=== PATIENT | female | born 1990 | race Caucasian/White ===

== ENCOUNTER 2020-01-22 16:20 | Observation (INO) | payer OTHER, SELFPAY ==
[2020-01-22] MEDS: PROMETHAZINE HCL 25 MG/ML AMPUL 12.5 MG IV PUSH (17:31)
[2020-01-22] MEDS: LACTATED RINGERS 1,000 ML 999 ML IV CONT (17:31)
[2020-01-22 17:35] LABS: Hematocrit 34.7 % (37.0-47.0); Hemoglobin 12.1 g/dL (12.0-15.0); Mean Corpuscular HGB Conc 34.9 g/dl (32-36); Mean Corpuscular Hemoglobin 29.2 pg (26-34); Mean Corpuscular Volume 83.8 fl (80-100); Mean Platelet Volume 10.2 fl (7.4-10.4); Platelet Count Result 246 k/mm3 (150-375); Red Blood Count 4.14 M/mm3 (4.2-5.4); Red Cell Distribution Width 12.4 % (11.5-14.5); White Blood Count 12.2 K/mm3 (4.5-10.0)
[2020-01-22 17:37] VITALS: BMI 18.3
--- NOTE | 2020-01-22 17:37 | OBADM ---
This patient, Ana Damico, admitted to the OB room OB Post 116 for observation. Patient/family oriented to hospital policies and general routines including ID bracelet, bed and alarms, visiting hours, pain management, procedures, bathroom and other care routines, personal items, smoking policy, room service/diet, and visiting hours. Patient/Family are encouraged to report perceived risks to care and to ask questions if they do not understand what they are told or what they should do.
[2020-01-22 17:38] LABS: Add Urine Microscopic? NO; Appearance Urine Clear (Clear); Bilirubin Urine Negative (Negative); Blood Urine Negative (Negative); Color Urine Straw (Yellow); Glucose Urine UA Negative (Negative); Ketones Urine Negative (Negative); Leukocyte Esterase Ur Negative LEU/UL (NEGATIVE); Nitrate Urine Negative (Negative); Protein Urine Negative (Negative); Specific Grav Ur 1.008 (1.001-1.035); Urobilinogen Urine Negative mg/dL (<2.0)
[2020-01-22 17:48] LABS: Alanine Aminotransferase 11 U/L (4-35); Albumin Level 4.3 g/dL (3.5-5.1); Alkaline Phosphatase 48 U/L (38-126); Anion Gap 10 mmol/L (8-16); Aspartate Amino Transferase 20 U/L (14-36); Bilirubin,Total 0.3 mg/dL (0.2-1.3); Blood Urea Nitrogen 10 mg/dL (7-17); Calcium 9.2 mg/dL (8.4-10.2); Carbon Dioxide 27 mmol/L (22-30); Chloride 100 mmol/L (98-107); Estimated CRCL calculation 99 ml/min; Estimated Glomerular Filt Rate > 60; Glucose 85 mg/dL (65-105); Sodium 137 mmol/L (137-145)
[2020-01-22 18:36] VITALS: BP 100/53; PULSE 85
[2020-01-22] MEDS: LACTATED RINGERS 1,000 ML 100 ML IV CONT (18:41)
[2020-01-22 18:45] VITALS: TEMP 37.1
--- NOTE | 2020-02-12 16:28 | PM.OBTRLD ---
OB - Triage/Final Diagnosis Evaluation Laboratory results: Laboratory Tests 01/22/20 01/22/20 01/22/20 17:24 17:24 17:24 WBC 12.2 H RBC 4.14 L Hgb 12.1 Hct 34.7 L MCV 83.8 MCH 29.2 MCHC 34.9 RDW 12.4 Plt Count 246 MPV 10.2 Sodium 137 Potassium 4.0 Chloride 100 Carbon Dioxide 27 Anion Gap 10 BUN 10 Creatinine 0.60 L Estim Creat Clear Calc 99 Estimated GFR > 60 Glucose 85 Calcium 9.2 Total Bilirubin 0.3 AST 20 ALT 11 Alkaline Phosphatase 48 Total Protein 7.0 Albumin 4.3 Urine Color Straw Urine Appearance Clear Urine pH 7.0 Ur Specific [place] 1.008 Urine Protein Negative Urine Glucose (UA) Negative Urine Ketones Negative Ur Blood (Man) Negative Urine Nitrate Negative Urine Bilirubin Negative Urine Urobilinogen Negative Ur Leukocyte Esterase Negative Final Diagnosis (1) Nausea and vomiting during : Code(s): O21.9 - Vomiting of , unspecified Status: Acute
== END 2020-01-22 19:03 | disposition home or self-care (01) ==
PROVIDERS: Admitting Provider Student in an Organized Health Care Education/Training Program; Visit Provider Student in an Organized Health Care Education/Training Program
DX: O21.0 Mild hyperemesis gravidarum (principal); Z3A.08 8 weeks gestation of pregnancy
CPT/HCPCS: 36415; 80053; 81003; 85027; 96361; 96374; G0378; G0379; J2550; J7120

== ENCOUNTER 2020-08-13 23:00 | Inpatient (IN) | payer OTHER, SELFPAY ==
[2020-08-13 23:45] VITALS: BMI 22.8
[2020-08-14] VITALS (97 sets, daily range): BP systolic 97–135; BP diastolic 47–87; PULSE 87–126; RESP 16; TEMP 36.7–38.1; O2SAT 93–100
[2020-08-14] MEDS: LACTATED RINGERS 1,000 ML 125 ML IV CONT ×3 (00:15→06:37)
[2020-08-14 00:25] LABS: Basophils Absolute Auto 0.1 K/mm3 (0.0-0.1); Basophils Percent Auto 0.3 % (0.2-1.2); Eosinophils Absolute Auto 0.1 K/mm3 (0-0.3); Eosinophils Percent Auto 0.7 % (0-4.4); Hematocrit 32.8 % (37.0-47.0); Hemoglobin 11.1 g/dL (12.0-15.0); Immature Granulocyte Absolute 0.12 K/mm3 (0.00-0.031); Immature Granulocyte Percent A 0.6 % (0-0.5); Lymphocytes Absolute Auto 2.32 K/mm3 (0.9-3.2); Lymphocytes Percent Auto 12.1 % (18.3-44.2); Mean Corpuscular HGB Conc 33.8 g/dl (32-36); Mean Corpuscular Hemoglobin 30.2 pg (26-34); Mean Corpuscular Volume 89.4 fl (80-100); Mean Platelet Volume 10.8 fl (7.4-10.4); Monocytes Absolute Auto 1.3 K/mm3 (0.1-0.6); Monocytes Percent Auto 6.8 % (2.6-8.5); Neutrophils Absolute Auto 15.2 K/mm3 (1.3-6.7); Neutrophils Percent Auto 79.5 % (45.5-73.1); Platelet Count Result 177 k/mm3 (150-375); Red Blood Count 3.67 M/mm3 (4.2-5.4); White Blood Count 19.1 K/mm3 (4.5-10.0)
--- NOTE | 2020-08-14 01:05 | WPDANESEPPF ---
Anes - Initial Pre Proc Eval Procedure: labor epidural Date/Time: 08/14/20 00:32 Surgeon: Estella Gold MD Pre Op Diagnosis: labor pain Pre Op Diagnosis: Labor Patient Data Age: 30 Gender: F Height: Weight: Last Vital Signs Pulse 99 08/14/20 01:03 BP 118/73 08/14/20 01:03 Pulse Ox 93 08/14/20 01:03 Allergies Allergy/AdvReac Type Severity Reaction Status Date / Time No Known Allergies Allergy Verified 08/13/20 13:03 Home Medications Medication Instructions Recorded Confirmed Type prenat.vits,juan ramon,[id number] 1 tablet PO DAILY 01/01/20 08/09/20 History Laboratory Tests 08/14/20 08/14/20 00:18 00:18 WBC 19.1 K/mm3 H K/mm3 (4.5-10.0) RBC 3.67 M/mm3 L M/mm3 (4.2-5.4) Hgb 11.1 g/dL L g/dL (12.0-15.0) Hct 32.8 % L % (37.0-47.0) MCV 89.4 fl fl (80-100) MCH 30.2 pg pg (26-34) MCHC 33.8 g/dl g/dl (32-36) RDW 13.0 % % (11.5-14.5) Plt Count 177 k/mm3 k/mm3 (150-375) MPV 10.8 fl H fl (7.4-10.4) Immature Gran % (Auto) 0.6 % H % (0-0.5) Neut % (Auto) 79.5 % H % (45.5-73.1) Lymph % (Auto) 12.1 % L % (18.3-44.2) [place] % (Auto) 6.8 % % (2.6-8.5) Eos % (Auto) 0.7 % % (0-4.4) Baso % (Auto) 0.3 % % (0.2-1.2) Lymph # (Auto) 2.32 K/mm3 K/mm3 (0.9-3.2) [place] # (Auto) 1.3 K/mm3 H K/mm3 (0.1-0.6) Eos # (Auto) 0.1 K/mm3 K/mm3 (0-0.3) Baso # (Auto) 0.1 K/mm3 K/mm3 (0.0-0.1) Abs Immat Gran (auto) 0.12 K/mm3 H K/mm3 (0.00-0.031) Absolute Neuts (auto) 15.2 K/mm3 H K/mm3 (1.3-6.7) Absolute Nucleated RBC 0.0 K/mm3 K/mm3 (0.0-0.012) Nucleated RBC % 0.0 % % (0.0-0.2) RPR Pending Patient hx anesthesia problems: none Family hx anesthesia problems: none PMFSH Past Medical History Medical History Vaginal delivery x1 Family History Family History Father Family history of hypercholesterolemia Grandparent Family history of lung cancer Social History Social History Smoking status: Never smoker Alcohol intake: never Substance use: never Gender identity (if verbalized by the patient): Female Spiritual care concerns: No Anes - Eval Final PreProcedure Day of Procedure 08/14/20 01:05 Patient weight: normal Heart: regular rate and rhythm Lungs: clear to auscultation and normal air movement Airway: Mallampati scale Neurological: alert and oriented ASA classification: II Anesthetic plan: proceed Anesthesia type and monitoring: regional epidural and standard monitoring Informed Consent: The patient's anesthetic plan and its attendant risks and benefits were discussed with the patient/family/POA. Questions were solicited and answers provided to the satisfaction of the patient/family/POA.
--- NOTE | 2020-08-14 01:33 | LDADM ---
This patient, Ana Damico, was admitted to Labor/Delivery/Recovery 106 on 08/13/20 at 23:00. Plans for labor, pain management and were discussed with patient. Patient/family oriented to hospital policies and general routines including ID bracelet, bed and alarms, visiting hours, pain management, procedures, bathroom and other care routines, personal items, smoking policy, room service/diet and guest tray routines, security routines, and visiting hours. Patient/Family are encouraged to report perceived risks to care and to ask questions if they do not understand what they are told or what they should do. See OBIX for further documentation.
[2020-08-14] MEDS: ACETAMINOPHEN 325 MG TABLET 650 MG PO (05:15)
[2020-08-14] MEDS: AMPICILLIN 2 GM/NS 100 ML 2 GM/100 ML BAG IVPB (05:16)
[2020-08-14 07:27] LABS: Rapid Plasma Reagin Non-Reactive (NonReactive)
--- NOTE | 2020-08-14 08:29 | PM.IMHP ---
H&P: HPI History of Present Illness Date/Time: 08/14/20 08:29 Patient is a 30-year-old currently 37 weeks and 6 days gestation who presented to L&D in labor. Last menstrual period 11/14/2019. Patient is dated by an ultrasound on 01/08/2020 at 6 weeks gestation. Patient presents to labor and delivery with complaints of contractions. Patient reports onset of contractions a few hours prior to presentation and reports progressively more intense and more frequent contractions. Denies any vaginal bleeding or leakage of fluid. Reports good movement. Upon presentation to labor and delivery, patient was noted to be 5 cm dilated and decision was made to admit patient to labor. Chief Complaint: labor Review of Systems Review of Systems: All systems reviewed & are unremarkable except as noted in HPI and below Constitutional: Constitutional: Reports as per HPI, Reports no additional constitutional complaints, Denies chills, Denies fever(s), Denies headache(s) and Denies night sweats Eyes: Eyes: Reports as per HPI and Reports no additional eye complaints ENT: Reports system reviewed and no additional complaints, except as documented, Reports as per HPI, Reports Normal hearing present and Denies headache(s) Cardiovascular: Cardiovascular: Reports as per HPI, Reports no additional cardiovascular complaints, Denies chest pain and Denies dyspnea Respiratory: Respiratory: Reports as per HPI, Reports no additional respiratory complaints, Denies cough and Denies dyspnea Gastrointestinal: Gastrointestinal: Reports as per HPI, Reports no additional gastrointestinal complaints, Denies abdominal pain, Denies change in bowel habits, Denies change in stool character, Denies nausea and Denies vomiting Genitourinary: Genitourinary: Reports no additional female genitourinary complaints, Reports as per HPI, Denies abnormal vaginal bleeding, Denies genital lesions, Denies hot flashes, Denies dyspareunia, Denies pelvic pain, Denies sexual dysfunction, Denies urinary incontinence, Denies vaginal discharge, Denies vaginal dryness and Denies vaginal odor Musculoskeletal: Musculoskeletal: Reports no additional musculoskeletal complaints and Reports as per HPI Integumentary/Breasts: Skin/Breast: Reports system reviewed and no additional complaints, except as docu, Reports as per HPI, Denies breast pain and Denies nipple discharge Neurologic: Reports system reviewed and no additional complaints, except as documented, Reports as per HPI, Reports Normal hearing present and Denies headache(s) Psychiatric: Psychiatric: Reports no additional psychiatric complaints, Reports as per HPI, Denies anxiety and Denies depression Endocrine: Endocrine: Reports no additional endocrine complaints and Reports as per HPI Hematologic/Lymphatic: Hematologic/Lymphatic: Reports no additional hematologic/lymphatic complaints and Reports as per HPI Allergic/Immunologic: Allergic/Immunologic: Reports no additional allergic/immunologic complaints and Reports as per HPI PMFSH Past Medical History Medical History Vaginal delivery x1 Family History Family History Father Family history of hypercholesterolemia Grandparent Family history of lung cancer Social History Social History Smoking status: Never smoker Alcohol intake: never Substance use: never Gender identity (if verbalized by the patient): Female Spiritual care concerns: No Meds Home Medications and Allergies Home Medications Medication Instructions Recorded Confirmed Type prenat.vits,juan ramon,[id number] 1 tablet PO DAILY 01/01/20 08/09/20 History Allergies Allergy/AdvReac Type Severity Reaction Status Date / Time No Known Allergies Allergy Verified 08/13/20 13:03 Vital Signs Vital Signs - 24 hr 08/14/20 00:34 08/14/20 00:42 07/27
--- NOTE | 2020-08-14 08:38 | WPDHPUPDATE1 ---
History and Physical Update Update Date/Time: 08/14/20 08:38 History and Physical has been reviewed, including an updated exam of the patient. There are NO changes in the patient's condition. Risks, benefits, and alternatives have been discussed and questions answered. Patient agrees to proceed with procedure.
[2020-08-14] MEDS: AMPICILLIN 1 GM/NS 50 ML 1 GM/50 ML BAG IVPB (09:11)
[2020-08-14] MEDS: OXYTOCIN 30 UNITS/NS 500 ML 30 UNITS/500 ML BAG 999 UNITS IV CONT (11:09)
[2020-08-14] MEDS: OXYTOCIN 30 UNITS/NS 500 ML 30 UNITS/500 ML BAG 125 UNITS IV CONT (11:42)
--- NOTE | 2020-08-14 12:19 | PM.OBPRVD ---
OB - Delivery Note Procedure Delivery date: 08/14/20 Procedure: The patient is a 30-year-old now who presented to labor and delivery just before midnight last night at 37 weeks and 5 days gestation with complaints of contractions. Patient was noted to be 4-5 cm dilated at time of presentation with frequent contractions. Patient was admitted to Labor and delivery in labor. Patient was allowed to progress on her own and made slow progress overnight. She became uncomfortable and requested an epidural for pain management which was placed without difficulty. Patient was noted to have maternal tachycardia as well as one isolated temperature of 100.6?. Antibiotic coverage and Tylenol was ordered, however, patient was noted to be afebrile prior to administration of these medications. These medications, however, were still administered for one dose in the event of possible chorioamnionitis. Patient continued to make cervical change on her own. Artificial rupture membranes was performed at 0741. Clear amniotic fluid was noted. Patient was noted to be fully dilated at 1028. She was prepped and draped for delivery and encouraged to push. At 1104, patient delivered infant head in direct OP presentation. Infant's head was delivered atraumatically and without difficulty. Occiput restituted to maternal right side and with subsequent push, the 's neck, shoulders, and rest of body delivered without difficulty. The was crying spontaneously. The was placed on maternal abdomen where care was assumed by awaiting nursing staff. Infant's nose and mouth were suctioned with bulb suction. The voided spontaneously. Delayed cord clamping was performed for approximately 60 seconds. The cord was clamped and cut. A segment of cord was collected for cord gases. Cord blood was also collected. The placenta was delivered spontaneously and intact. Uterine fundus was noted to be firm with bimanual massage. On inspection, a 1st degree perineal laceration was noted as well as a right labial laceration. These lacerations were repaired with 3-0 Vicryl in the usual fashion. Excellent hemostasis was noted. Straight catheterization was performed with the return of approximately 20 cc of clear urine. Estimated blood loss for entire delivery was 250 cc. The was a live-born male infant, Apgars 9 and 9, weighing 7 lb 13 oz. Both mother and baby doing well at end of delivery. Intrapartal events: Febrile Delivery augmentation: rupture of membranes Delivery monitor: external FHT and external uterine Route of delivery: Laceration Description: Perineal - 1st Degree and Labial (right) Delivery repair: vicryl (3-0) Specimen: Yes (placenta and cord, cord blood, and cord gases) Quantitative Blood Loss (ml): 250 Anesthesia type: Epidural Disposition: floor Complications: No immediate complications [place] Baby Date of : 08/14/20 Time of : 11:04 Weeks of gestation at delivery: 37 (37.6) Infant gender: Male Weight (pounds): 7 Weight (ounces): 13 presentation: vertex position: Right Occiput Posterior (direct OP with restitution of head to right side) Placenta delivery description: Spontaneous cord vessel description: 3 Vessels and Delayed Cord Clamping score one minute: 9 score five minutes: 9
[2020-08-14] MEDS: BENZOCAINE 20% AER SPR (*SP) 56 GM CAN 1 SPRAY TOPICAL (13:33)
[2020-08-14] MEDS: WITCH HAZEL 40 PADS 1 PAD TOPICAL (13:34)
--- NOTE | 2020-08-14 13:45 | OBPPTRN ---
Patient transferred to post room # 291 via ( wheelchair ). Support person present. Oriented to unit, room, information board, rooming in, admission packet and security measures. Patient verbalizes understanding. PT received such instructions one to one discussion and mom baby care guide as a resource. no barriers to learning identified and both mom and spouse recipients of such instructions.
--- NOTE | 2020-08-14 14:40 | PC.NURSE ---
1445 Attempt to consult, parents are reviewing certificate information. Mother has at breast denies tenderness.
[2020-08-14] MEDS: IBUPROFEN 600 MG TABLET PO (18:01)
[2020-08-14] MEDS: LANOLIN (LANSINOH) 7.5 GM CREAM 1 APPLIC TOPICAL (18:01)
[2020-08-14] MEDS: DOCUSATE SODIUM 100 MG CAPSULE PO (18:01)
[2020-08-15 04:50] VITALS: BP 108/67; PULSE 92; RESP 16; TEMP 36.2; O2SAT 100
[2020-08-15] MEDS: IBUPROFEN 600 MG TABLET PO (04:50)
[2020-08-15 05:25] LABS: Hematocrit 29.3 % (37.0-47.0); Hemoglobin 9.9 g/dL (12.0-15.0)
--- NOTE | 2020-08-15 08:00 | PC.NURSE ---
PT introductions made and plan of care discussed per post , pain management, breast feeding, daily care activities and pending discharge to home. PT verbalized understanding of such care. PT received education via one to one discussion, mother baby guide, no barriers to learning identified and both parents are the recipients of such education. PT verbalized understanding of such care.
[2020-08-15 09:10] VITALS: BP 103/54; PULSE 78; RESP 18; TEMP 36.4; O2SAT 99
--- NOTE | 2020-08-15 09:45 | WPDANLDPN2 ---
Anes-Prog Note L&D Date/Time: 08/15/20 09:45 Comfortable throughout: labor Neuraxial method: epidural Epidural/Spinal procedure site: clean & non-tender Neuro status: Neuro function grossly intact. Cardiovascular status: normal Respiratory status: normal Airway patency: baseline Mental status: baseline Post-Op hydration status: normal Vital Signs: Last Vital Signs Temp 36.2 C L 08/15/20 04:50 Pulse 92 08/15/20 04:50 Resp 16 08/15/20 04:50 BP 108/67 08/15/20 04:50 Pulse Ox 100 08/15/20 04:50 Pain score (VAS): 0 Post-procedural complaints: none Patient feedback: Patient satisfied with anesthetic care.
--- NOTE | 2020-08-15 09:52 | PM.OBPNVD ---
OB - PN: Subj Subjective Date/time seen: 08/15/20 09:52 Patient doing well. Reports cramping while . Otherwise, denies significant pain. Pain well controlled with medication. Denies any headache, chest pain, SOB, or fever. Ambulating without difficulty. Voiding well. Baby well. OB - PN: Obj Data Labs CBC & Chem 7: 08/15/20 04:54 Labs: Laboratory Results - last 24 hr 08/15/20 04:54 Hgb 9.9 L Hct 29.3 L OB - PN A/P Assessment and Plan (1) Normal spontaneous vaginal delivery: Code(s): O80 - Encounter for full-term uncomplicated delivery Status: Acute Assessment and Plan: PPD#1 doing well pain management PRN requesting PPD#1 discharge if infant cleared emergency precautions reviewed f/u in office in 4-6 weeks for visit Time Spent With Patient Time: Total time spent is greater than 50% in coordination of care (as documented) at patient's floor/unit and/or counseling patient: Exam Const: General: cooperative, healthy appearing, comfortable and no acute distress GI: GI Palp: Yes Soft to palpation and No Tenderness to palpation present (GI) Other: fundus firm below umbilicus Extrem: Right lower extremity: no edema Left lower extremity: no edema Other: no calf tenderness
--- NOTE | 2020-08-15 10:07 | PM.OBDSVD ---
DS: Admitting Diagnosis Admitting Diagnosis Admitting Diagnosis: Labor OB - DS: Summary OB Procedures : None OB Procedures Intrapartum: Spontaneous Vag Delivery OB Procedures: : None Time Spent with Patient Time attestation: Total time spent providing and/or coordinating discharge services: DS: Data Data Completed and Pending Pending studies at discharge: Pending at discharge 08/14/20 11:09 Surgical [PTH] Routine Labs on day of discharge: Labs from last 24 hours 08/15/20 04:54 Hgb 9.9 L Hct 29.3 L Discharge Plan Discharge Attending physician on discharge: Estella Gold Consulting providers: Sami Mccormick Discharging Clinician: Estella Gold Anticipated Discharge Date/Time: 08/15/20 11:30 Patient Disposition: Home, Self-Care Activity: as tolerated and pelvic rest Diet: regular Discharge Instructions: Call office ([phone]) to schedule a visit in 4-6 weeks. You may take Ibuprofen 600mg every 6 hours as needed for pain. Pain medication may make you constipated. It may be helpful to take an [id number] stool softener, such as Colace and/or Senokot, along with the pain medication to help lessen constipation. Call office or go to ED for pain not controlled with medication, headache, chest pain, shortness of breath, fever, chills, persistent nausea or vomiting, severe abdominal pain, heavy vaginal bleeding >2 pads/hour, foul vaginal discharge or odor, or problems with your breasts. Education: Mom and Baby Guide Given to: Mother Follow-Up: Call your delivering provider's office for an appointment to be seen in: 4 Weeks Mom and baby should come to the [facility] for the follow-up appointment. Appointment Date/Time: August 16, 2020 at 8:00 am What to expect at your follow-up visit: Blood Pressure Check Call [phone] if you are unable to keep your appointment time. BREAST CARE: * Wear a snug supportive bra. * For engorgement discomfort: Breast Feeding: * Apply warm moist washcloths * Express milk as needed to relieve engorgement * Wear loose clothing Bottle Feeding: * May apply ice packs * For sore nipples: * Identify correct latch-on * Apply warm moist washcloths before and after nursing * Air dry nipples after nursing * May apply Lansinoh cream to nipples PERINEAL CARE: * Until bleeding stops, use your shay bottle after urinating * Change your pad frequently throughout the day * You may take sitz baths several times a day (fill your bathtub with warm water and soak for 20 minutes.) Do NOT bathe in the water * No tub baths until seen by your physician - You may shower ACTIVITY: * Rest as much as possible. * Do not exercise or lift anything heavier than your baby (such as laundry or other children.) * Avoid stairs or driving as much as possible. * Do not put anything into the vagina. No douching, tampons, or sexual activity until seen by physician. NOTIFY PHYSICIAN IF YOU HAVE ANY QUESTIONS OR IF ANY OF THE FOLLOWING SYMPTOMS OCCUR: * If your perineum becomes red, swollen, or more painful than what you have experienced in the hospital. * If your vaginal bleeding becomes foul smelling. * If your vaginal bleeding becomes more heavy than a period or if your bleeding changes from pink to bright red. However, you may pass an occasional walnut-sized clot once or twice for the first week . * If you experience a sharp, shooting pain in you calves. * If you discover a hard, reddened area on your breast or if you experience flu-like symptoms. * If you have a fever of 100.4 or greater DIET: * Eat regular, well-balanced meals. * Drink plenty of fluids daily. If , drink to thirst. Patient Instructions: Antibiotic Form Stand Alone Forms: General Discharge Information Follow-up/Referral
[2020-08-15] MEDS: ACETAMINOPHEN 325 MG TABLET 650 MG PO (10:17)
[2020-08-15] MEDS: MULTIVIT/MIN/PREN/FOL AC/IRON TABLET 1 TAB PO (10:19)
[2020-08-15] MEDS: POLYSACCHARIDE IRON COMPLEX 150 MG CAPSULE PO (10:19)
[2020-08-15] MEDS: DOCUSATE SODIUM 100 MG CAPSULE PO (10:19)
--- NOTE | 2020-08-15 11:45 | PC.NURSE ---
Observed mother verbalizes she is able to independently latch with appropriate positioning/alignment. She denies any nipple discomfort, is feeding as required and waking to feed if needed. has had at least 8 effective feedings in the past 24 hours, and is currently meeting outcomes for weight, output, jaundice and feeding frequencies. Mother states she feels confident to continue effective at home. Reviewed transition to breast milk, signs of adequate intake, and engorgement/relief. Instructed to call ICP if intake/output less than required. Reviewed regular medications mother is taking. Information provided per [place]. Reviewed community resources on the [facility] website and in the Mom/Baby guide. Information on outpatient services provided. Mother has no further questions at this time.
--- NOTE | 2020-08-15 12:58 | PC.NURSE ---
PT received discharge instructions per protocol
--- NOTE | 2020-08-15 13:52 | PC.NURSE ---
PT discharged to home via ambulatory accompanied by spouse and and taken to waiting car. follow up appts confirmed
[2020-08-16 07:54] VITALS: BP 119/83; PULSE 91; RESP 20; TEMP 37.2; O2SAT 99
== END 2020-08-15 13:52 | disposition home or self-care (01) | DRG 807 ==
LOC: ANHLDR 08-14 00:10 → ANHOB2 08-14 13:51
PROVIDERS: Admitting Provider Student in an Organized Health Care Education/Training Program; Visit Provider Student in an Organized Health Care Education/Training Program
DX: O75.2 Pyrexia during labor, not elsewhere classified (principal); Z37.0 Single live birth; O70.0 First degree perineal laceration during delivery; Z3A.37 37 weeks gestation of pregnancy
CPT/HCPCS: 36415; 85014; 85018; 85025; 86592; 86850; 86900; 86901; 88307; A9270; J0290; J1580; J2590; J2795; J7120

== ENCOUNTER → 2022-01-25 12:53 | Outpatient (CLI) | payer OTHER, SELFPAY ==
--- NOTE | ~2022-01-25 | US_ITS ---
US OB <=14 wk fetus w TV DATE: 01/25/2022 13:18 INDICATION: Gestational age and viability determination. Last menstrual period 11/28/2021. TECHNIQUE: Real-time imaging and Doppler analysis COMPARISON: None FINDINGS: Retroverted uterus measures approximately 11.9 cm vertical dimension, 5.8 cm anteroposterio r dimension. A normally shaped intrauterine gestational sac is identified, with surrounding hyper ech ogenicity consistent with normal decidual reaction. pole and yolk sac are identified. hea rt motion is identified, with heart rate averaging 104 bpm. [place]-rump length measurement averages 0.46 cm, consistent with 6 weeks 1 day +/- 4 days estimated ge stational age and CHEL is 09/04/2022. The ovaries are unremarkable. No pelvic mass lesion or abnormal pelvic fluid collection is evident. IMPRESSION: Estimated gestational age of 6 weeks 1 day +/- 4 days; CHEL: 09/04/2022 Reviewed, dictated and finalized at [facility]. Reviewed, dictated and finalized at [facility]. IMPRESSION: Estimated gestational age of 6 weeks 1 day +/- 4 days; CHEL: 09/05/19 23
== END ==
PROVIDERS: PCP Student in an Organized Health Care Education/Training Program; Visit Provider Student in an Organized Health Care Education/Training Program
DX: Z36.9 Encounter for antenatal screening, unspecified (principal); Z3A.01 Less than 8 weeks gestation of pregnancy
CPT/HCPCS: 76801; 76817

== ENCOUNTER 2022-02-08 12:58 | Outpatient (CLI) | payer OTHER, SELFPAY ==
--- NOTE | ~2022-02-08 | US_ITS ---
EXAMINATION: US OB <=14 wk fetus w TV DATE: 02/08/2022 14:29 INDICATION: Supervision of normal first trimester TECHNIQUE: Real-time pelvic transabdominal and transvaginal ultrasound was performed. COMPARISON: 01/25/2022 FINDINGS: The uterus measures 11.5 x 7.7 x 9.8 cm. There is an intrauterine gestational sac. A yolk sac is identified. heart motion is identified measuring 183 beats per minute (bpm) by M-mode Do ppler. The crown rump length measures 2.0 cm, which correlates with an estimated gestational ag e of 8 weeks and 4 day(s) (+/-) 5 day(s). The right ovary measures 2.9 x 1.8 x 2.4 cm. The left ovary measures 4.2 x 1.4 x 1.7 cm. There is nor mal vascular flow in the ovaries. There is no free fluid in the pelvis. IMPRESSION: 1. Live intrauterine with an estimated gestational age of 8 weeks and 4 day(s) (+/-) 5 day( s) and an estimated delivery date of 09/16/2022. Reviewed, dictated and finalized at [facility] IMPRESSION: 1. Live intrauterine with an estimated gestational age of 8 weeks and 4 day(s) (+/-) 5 day(s) and an estimated delivery date of 09/16/2022.
== END 2022-02-08 12:59 | disposition home or self-care (01) ==
PROVIDERS: PCP Student in an Organized Health Care Education/Training Program; Visit Provider Student in an Organized Health Care Education/Training Program
DX: Z34.91 Encounter for supervision of normal pregnancy, unspecified, first trimester (principal); Z3A.08 8 weeks gestation of pregnancy
CPT/HCPCS: 76801; 76817

== ENCOUNTER 2022-08-04 16:21 | Observation (INO) | payer OTHER, SELFPAY ==
[2022-08-04] VITALS (30 sets, daily range): BP systolic 104–136; BP diastolic 63–84; PULSE 67–146; O2SAT 98–100
[2022-08-04 17:15] LABS: Bacteria Urine None Seen /hpf; Non Pathogenic Casts 0-2; RBC Urine 21-50 /hpf (0-2); Squamous Epithelial Cell Urine None seen /hpf (Few); WBC Urine 0-5 /hpf (0-3)
[2022-08-04 17:35] LABS: Appearance Urine Clear (Clear); Bilirubin Urine Negative (Negative); Blood Urine 3+ (Negative); Color Urine Yellow (Yellow); Glucose Urine UA Negative (Negative); Ketones Urine Negative (Negative); Leukocyte Esterase Ur Negative LEU/UL (NEGATIVE); Nitrate Urine Negative (Negative); Protein Urine Negative (Negative); Specific Grav Ur 1.015 (1.001-1.035); Urobilinogen Urine 0.2 mg/dL (<2.0); pH Urine 7.5 (5.0-9.0)
[2022-08-04 18:04] LABS: Add Urine Microscopic? YES
[2022-08-04] MEDS: NIFEdipine 10 MG CAPSULE PO (18:28)
[2022-08-04] MEDS: BETAMETHASONE SOD PHOS/ACETATE 30 MG/5 ML VIAL 12 MG IM (19:18)
[2022-08-04] MEDS: TERBUTALINE SULFATE 1 MG/ML VIAL 0.25 MG SUB-Q (19:19)
[2022-08-04] MEDS: LACTATED RINGERS 1,000 ML 999 ML IV CONT (19:20)
[2022-08-04 19:43] LABS: Fetal Fibronectin Negative
[2022-08-05 00:04] VITALS: BP 117/67; PULSE 97
[2022-08-05 07:41] VITALS: BP 109/63; PULSE 88
[2022-08-05] MEDS: NIFEdipine 10 MG CAPSULE PO (08:43)
--- NOTE | 2022-08-23 19:01 | PM.OBTRLD ---
OB - Triage/Final Diagnosis Visit Information Comments/Additional reasons for admission: I have assessed the risk for this patient, Ana Damico, and determined that she would benefit from observation care. Evaluation Laboratory results: Laboratory Tests 08/04/22 08/04/22 08/05/22 16:50 18:43 08:42 Urine Color Yellow Urine Appearance Clear Urine pH 7.5 Ur Specific [place] 1.015 Urine Protein Negative Urine Glucose (UA) Negative Urine Ketones Negative Ur Blood (Man) 3+ H Urine Nitrate Negative Urine Bilirubin Negative Urine Urobilinogen 0.2 Ur Leukocyte Esterase Negative Urine RBC 21-50 H Urine WBC 0-5 Ur Squamous Epith Cells None seen Urine Bacteria None seen Urine Casts 0-2 C.trachomatis RNA (TMA) Not detected N.gonorrhoeae RNA (TMA) Not detected Fibronectin Negative Final Diagnosis (1) contractions: Code(s): O47.00 - False labor before 37 completed weeks of gestation, unspecified trimester Status: Acute
== END 2022-08-05 12:13 | disposition home or self-care (01) ==
PROVIDERS: Admitting Provider Obstetrics & Gynecology; Visit Provider Obstetrics & Gynecology
DX: O47.03 False labor before 37 completed weeks of gestation, third trimester (principal); Z3A.33 33 weeks gestation of pregnancy
CPT/HCPCS: 81001; 82731; 87081; 87086; 87491; 87591; 96372; 99199; A9270; G0378; G0379; J0702; J3105; J7120

== ENCOUNTER 2022-08-05 18:59 | Outpatient (CLI) | payer OTHER, SELFPAY ==
[2022-08-05] MEDS: BETAMETHASONE SOD PHOS/ACETATE 30 MG/5 ML VIAL 12 MG IM (19:35)
--- NOTE | 2022-08-07 08:17 | PM.OBTRLD ---
OB - Triage/Final Diagnosis Visit Information Date of evaluation: 08/04/22 Reason for evaluation: threatened labor Comments/Additional reasons for admission: I have assessed the risk for this patient, Ana Damico, and determined that she would benefit from observation care.
== END 2022-08-06 23:23 | disposition home or self-care (01) ==
LOC: ANHOBOP 19:05 → ANHLDR 19:05
PROVIDERS: Visit Provider Obstetrics & Gynecology
DX: O20.0 Threatened abortion (principal); Z3A.00 Weeks of gestation of pregnancy not specified
CPT/HCPCS: 99199; J0702

== ENCOUNTER 2022-09-14 16:00 | Inpatient (IN) | payer OTHER, SELFPAY ==
[2022-09-14] VITALS (34 sets, daily range): BP systolic 104–137; BP diastolic 53–91; PULSE 57–108; RESP 16; TEMP 36.7; O2SAT 99–100; BMI 23.4
[2022-09-14] MEDS: LACTATED RINGERS 1,000 ML 125 ML IV CONT ×2 (16:27→17:07)
--- NOTE | 2022-09-14 16:43 | WPDANESEPPF ---
Anes - Initial Pre Proc Eval Date/Time: 09/14/22 16:43 Surgeon: Everette Turner MD Pre Op Diagnosis: Labor Patient Data Age: 32 Gender: F Height: Weight: Allergies Allergy/AdvReac Type Severity Reaction Status Date / Time No Known Allergies Allergy Verified 09/14/22 08:43 Home Medications Medication Instructions Recorded Confirmed Type prenat.vits,juan ramon,[id number] 1 tablet PO DAILY 01/01/20 08/30/22 History cholecalciferol (vitamin D3) 50 50 mcg PO DAILY 05/19/22 08/30/22 History mcg (2,000 unit) capsule Laboratory Tests 09/14/22 16:23 WBC Pending RBC Pending Hgb Pending Hct Pending MCV Pending MCH Pending MCHC Pending RDW Pending Plt Count Pending MPV Pending Immature Gran % (Auto) Pending Neut % (Auto) Pending Lymph % (Auto) Pending [place] % (Auto) Pending Eos % (Auto) Pending Baso % (Auto) Pending Lymph # (Auto) Pending [place] # (Auto) Pending Eos # (Auto) Pending Baso # (Auto) Pending Abs Immat Gran (auto) Pending Absolute Neuts (auto) Pending Absolute Nucleated RBC Pending Nucleated RBC % Pending RPR Pending Patient hx anesthesia problems: none Family hx anesthesia problems: none Results Review: All pre-operative results and documents have been reviewed as part of the pre-operative evaluation. PMFSH Past Medical History Medical History Vaginal delivery x2 Surgical History Surgical History [place] teeth removed Family History Family History Father Family history of hypercholesterolemia Grandparent Family history of lung cancer Social History Social History Smoking status: Never smoker Alcohol intake: never Substance use: never Lack of Transportation: No Lack of Food: Never True Current Housing: I Have Housing Concerned About Future Housing: No Difficulty Paying Gas/Electric Bills: No Difficulty Paying for Meds: No Currently Unemployed: No Difficulty w/ Childcare or Family Care: No Living arrangements: with family Occupation/Education: occupation Gender identity (if verbalized by the patient): Female Sexual Orientation (if Verbalized by the Patient): Straight or Heterosexual Spiritual care concerns: No Anes - Eval Final PreProcedure Day of Procedure 09/14/22 16:43 Patient weight: normal Heart: regular rate and rhythm Lungs: clear to auscultation and normal air movement Airway: Mallampati scale Neurological: alert and oriented ASA classification: II Anesthetic plan: proceed Anesthesia type and monitoring: regional epidural and standard monitoring Results Review: All pre-operative results and documents have been reviewed as part of the pre-operative evaluation. Informed Consent: The patient's anesthetic plan and its attendant risks and benefits were discussed with the patient/family/POA. Questions were solicited and answers provided to the satisfaction of the patient/family/POA.
[2022-09-14 16:44] LABS: Basophils Percent Auto 0.3 % (0.2-1.2); Eosinophils Absolute Auto 0.1 K/mm3 (0-0.3); Eosinophils Percent Auto 0.5 % (0-4.4); Hematocrit 34.7 % (37.0-47.0); Hemoglobin 11.7 g/dL (12.0-15.0); Immature Granulocyte Absolute 0.09 K/mm3 (0.00-0.031); Immature Granulocyte Percent A 0.7 % (0-0.5); Lymphocytes Absolute Auto 1.81 K/mm3 (0.9-3.2); Lymphocytes Percent Auto 13.9 % (18.3-44.2); Mean Corpuscular HGB Conc 33.7 g/dl (32-36); Mean Corpuscular Hemoglobin 29.9 pg (26-34); Mean Corpuscular Volume 88.7 fl (80-100); Mean Platelet Volume 10.8 fl (7.4-10.4); Monocytes Percent Auto 7.4 % (2.6-8.5); Neutrophils Absolute Auto 10.1 K/mm3 (1.3-6.7); Neutrophils Percent Auto 77.2 % (45.5-73.1); Platelet Count Result 171 k/mm3 (150-375); Red Blood Count 3.91 M/mm3 (4.2-5.4); Red Cell Distribution Width 13.2 % (11.5-14.5)
[2022-09-14] MEDS: OXYTOCIN 30 UNITS/NS 500 ML 30 UNITS/500 ML BAG 999 UNITS IV CONT (17:53)
--- NOTE | 2022-09-14 18:06 | PM.OBPRVD ---
OB - Delivery Note Procedure Delivery date: 09/14/22 Procedure: spontaneous vaginal delivery Induction method: None Delivery monitor: External FHT Route of delivery: Laceration Description: Perineal - 1st Degree Delivery repair: vicryl (3.0 vicryl) Specimen: No Quantitative Blood Loss (ml): 200 Anesthesia type: Epidural Disposition: Floor Narrative: She presented in active labor. There was some leaking at approximately 1645. She had epidural placed on request. She dilated to complete. There was a forebag which was artificially ruptured and she pushed several times and delivered a female infant. 's nose and mouth suctioned at perineum. Infant placed on maternal abdomen vigorously crying. Placenta delivered spontaneously and intat. She sustained a first degree laceration at introitus which was repaired with 3.0 vicryl. Baby Date of : 09/14/22 Time of : 17:49 Weeks of gestation at delivery: 39 gender: Female Weight (pounds): 8 Weight (ounces): 1 presentation: vertex position: Right Occiput Anterior Placenta delivery description: Spontaneous Cord Vessel Description: 3 Vessels and Clamped/Cut score one minute: 7 score five minutes: 9 AMG Delivery Billing Delivery Delivery: Delivery Charge
--- NOTE | 2022-09-14 18:08 | PM.IMHP ---
H&P: HPI History of Present Illness Date/Time: 09/14/22 18:08 Chief Complaint: contractions Narrative: She was admitted to L and D with regular contractions and cervix 6 dilated. She is at 39 5/7 weeks by first trimester ultrasound. PNC uncomplicated. She is a . labs reviewed. Review of Systems Review of Systems: All systems reviewed & are unremarkable except as noted in HPI and below Constitutional: Constitutional: Reports no additional constitutional complaints and Denies headache(s) Eyes: Eyes: Denies spots in vision ENT: Reports system reviewed and no additional complaints, except as documented and Denies headache(s) Cardiovascular: Cardiovascular: Denies chest pain and Denies dyspnea Respiratory: Respiratory: Denies dyspnea Gastrointestinal: Gastrointestinal: Reports no additional gastrointestinal complaints Genitourinary: Genitourinary: Reports amenorrhea Musculoskeletal: Musculoskeletal: Reports no additional musculoskeletal complaints Integumentary/Breasts: Skin/Breast: Denies breast mass and Denies rash Neurologic: Denies headache(s) Psychiatric: Psychiatric: Reports no additional psychiatric complaints [facility] Past Medical History Medical History (Updated 09/15/22 @ 07:34 by Everette Turner MD) Vaginal delivery x2 Surgical History Surgical History [place] teeth removed Family History Family History Father Family history of hypercholesterolemia Grandparent Family history of lung cancer Social History Social History Smoking status: Never smoker Second hand tobacco smoke exposure: No Alcohol intake: never Substance use: never Lack of Transportation: No Lack of Food: Never True Current Housing: I Have Housing Concerned About Future Housing: No Difficulty Paying Gas/Electric Bills: No Difficulty Paying for Meds: No Currently Unemployed: No Education: Master's Degree or Higher Difficulty w/ Childcare or Family Care: No Living arrangements: with family Occupation/Education: occupation Gender identity (if verbalized by the patient): Female Sexual Orientation (if Verbalized by the Patient): Straight or Heterosexual Spiritual care concerns: No Meds Home Medications and Allergies Home Medications Medication Instructions Recorded Confirmed Type prenat.vits,juan ramon,[id number] 1 tablet PO DAILY 01/01/20 08/30/22 History cholecalciferol (vitamin D3) 50 50 mcg PO DAILY 05/19/22 08/30/22 History mcg (2,000 unit) capsule acetaminophen 325 mg tablet (Mapap 650 mg PO Q6H PRN Mild Pain (1-3) 09/15/22 Rx (acetaminophen)) Or Headache benzocaine 20 %-menthol 0.5 % 1 spray topical PRN PRN Perineal 09/15/22 Rx topical aerosol (Dermoplast (with Discomfort menthol)) docusate sodium 100 mg capsule 100 mg PO BID PRN Constipation 09/15/22 Rx ibuprofen 600 mg tablet 600 mg PO Q6H PRN Cramping 09/15/22 Rx polysaccharide iron complex 150 mg 150 mg PO BIDWM 09/15/22 Rx iron capsule witch mir 50 % topical pads 1 pad topical PRN PRN Perineal 09/15/22 Rx (Preparation H (Witch Mir)) Discomfort Allergies Allergy/AdvReac Type Severity Reaction Status Date / Time No Known Allergies Allergy Verified 09/14/22 08:43 Vital Signs Vital Signs - 24 hr 09/14/22 16:52 09/14/22 16:53 09/14/22 16:54 Pulse Rate 92 86 Blood Pressure 137/91 H 127/80 Pulse Oximetry 99 Oxygen Delivery 09/14/22 16:58 09/14/22 17:00 09/14/22 17:02 Pulse Rate 81 73 69 Blood Pressure 133/86 104/75 123/68 Pulse Oximetry 100 100 Oxygen Delivery 09/14/22 17:05 09/14/22 17:06 09/14/22 17:09 Pulse Rate 71 64 Blood Pressure 118/86 124/77 Pulse Oximetry 100 Oxygen Delivery 09/14/22 17:10 09/14/22 17:13 09/14/22 17:15 Pulse Rate 83 72 Blood Pressure 132/79
[2022-09-14] MEDS: OXYTOCIN 30 UNITS/NS 500 ML 30 UNITS/500 ML BAG 125 UNITS IV CONT (19:30)
[2022-09-14] MEDS: BENZOCAINE 20% AER SPR (*SP) 56 GM CAN 1 SPRAY TOPICAL (20:30)
[2022-09-14] MEDS: WITCH HAZEL 40 PADS 1 PAD TOPICAL (20:30)
--- NOTE | 2022-09-14 20:48 | PC.NURSE ---
Patient transferred to post room #284 per wheelchair from labor and delivery. Support person present. Oriented to unit, room, information board, rooming in, admission packet and security measures. Patient verbalizes understanding.
[2022-09-15 00:40] VITALS: BP 109/71; PULSE 75; RESP 16; TEMP 36.7
[2022-09-15 04:45] LABS: Hematocrit 27.4 % (37.0-47.0); Hemoglobin 9.1 g/dL (12.0-15.0)
--- NOTE | 2022-09-15 06:50 | PC.NURSE ---
Pt introductions made and plan of care discussed per post , pain management, breast feeding daily care activities. PT and spouse both recipients of such instructions and no barriers to learning identified at this time. PT received such instructions per one to one discussion, mom baby care guide and demonstrations this shift. PT verbalized understanding of such care.
--- NOTE | 2022-09-15 07:32 | PM.OBPNVD ---
OB - PN: Subj Subjective Date/time seen: 09/15/22 07:32 Patient comments: pain well controlled, tolerating diet and other (Decreasing lochia.) baby status: doing well feeding status: exclusively bottle feeding OB - PN: Obj Data Labs 09/15/22 04:36 Labs: Laboratory Results - last 24 hr 09/14/22 09/15/22 16:23 04:36 WBC 13.0 H RBC 3.91 L Hgb 11.7 L 9.1 L Hct 34.7 L 27.4 L MCV 88.7 MCH 29.9 MCHC 33.7 RDW 13.2 Plt Count 171 MPV 10.8 H Immature Gran % (Auto) 0.7 H Neut % (Auto) 77.2 H Lymph % (Auto) 13.9 L [place] % (Auto) 7.4 Eos % (Auto) 0.5 Baso % (Auto) 0.3 Lymph # (Auto) 1.81 [place] # (Auto) 1.0 H Eos # (Auto) 0.1 Baso # (Auto) 0.0 Abs Immat Gran (auto) 0.09 H Absolute Neuts (auto) 10.1 H Absolute Nucleated RBC 0.0 Nucleated RBC % 0.0 Blood Type A Positive Antibody Screen Negative OB - PN A/P Assessment and Plan (1) Vaginal delivery: Code(s): O80 - Encounter for full-term uncomplicated delivery Status: Acute Plan day: 1 Plan: routine care Comments: Patient doing well. Asymptomatic anemia. Continue routine care. She request discharge at 24 hours. Discharge precautions discussed. Time Spent With Patient Time: Total time spent is greater than 50% in coordination of care (as documented) at patient's floor/unit and/or counseling patient: Review of Systems Review of Systems: All systems reviewed & are unremarkable except as noted in HPI and below Constitutional: Constitutional: Reports no additional constitutional complaints Cardiovascular: Cardiovascular: Denies dyspnea Respiratory: Respiratory: Denies dyspnea Gastrointestinal: Gastrointestinal: Reports no additional gastrointestinal complaints and Denies abdominal pain Genitourinary: Genitourinary: Reports no additional female genitourinary complaints Exam Const: General: no acute distress, alert and awake Resp: Effort & Inspection: normal respiratory effort GI: GI Palp: No Tenderness to palpation present (GI) Other: Fundus nontender, below umbilicus Psych: Appearance: grossly normal Affect: normal affect Other: Abd: fundus firm below umbilicus, nontender Perineum: healing Ext: nontender
[2022-09-15 08:15] VITALS: BP 114/67; PULSE 104; RESP 16; TEMP 36.6; O2SAT 100
[2022-09-15 09:17] LABS: Rapid Plasma Reagin Non-Reactive (NonReactive)
[2022-09-15 10:00] VITALS: PULSE 86; RESP 16; O2SAT 98
[2022-09-15] MEDS: ACETAMINOPHEN 325 MG TABLET 650 MG PO ×2 (10:05→16:50)
[2022-09-15] MEDS: DOCUSATE SODIUM 100 MG CAPSULE PO ×2 (10:06→16:50)
[2022-09-15] MEDS: IBUPROFEN 600 MG TABLET PO ×2 (10:06→16:50)
[2022-09-15] MEDS: POLYSACCHARIDE IRON COMPLEX 150 MG CAPSULE PO ×2 (10:06→16:51)
[2022-09-15] MEDS: LANOLIN (LANSINOH) 7.5 GM CREAM 1 APPLIC TOPICAL (10:07)
[2022-09-15] MEDS: MULTIVIT/MIN/PREN/FOL AC/IRON TABLET 1 TAB PO (10:07)
--- NOTE | 2022-09-15 10:48 | WPDANLDPN2 ---
Anes-Prog Note L&D Date/Time: 09/15/22 10:48 Comfortable throughout: labor and delivery Neuraxial method: epidural Epidural/Spinal procedure site: clean & non-tender Neuro status: Neuro function grossly intact. Cardiovascular status: normal Respiratory status: normal Airway patency: baseline Mental status: baseline Post-Op hydration status: normal Vital Signs: Last Vital Signs Temp 36.6 C 09/15/22 08:15 Pulse 104 H 09/15/22 08:15 Resp 16 09/15/22 08:15 BP 114/67 09/15/22 08:15 Pulse Ox 100 09/15/22 08:15 O2 Del Method Room Air 09/14/22 17:37 Pain score (VAS): 04/06 I/O: Intake & Output 09/14/22 09/15/22 09/15/22 23:59 07:59 15:59 Intake Total 2000 Output Total 350 Balance 1650 Post-procedural complaints: none Patient feedback: Patient satisfied with anesthetic care.
[2022-09-15 12:10] VITALS: BP 108/76; PULSE 86; RESP 16; TEMP 37.2; O2SAT 98
--- NOTE | 2022-09-15 13:56 | PC.NURSE ---
[id number] Introductions were made. mother states she just finished . Mother denies pain with and has a successful history with her two other infants now ages 2 & 4. Mother states her is latching well and without pain to her. Inpatient and outpatient resources provided with name written on the communication board and the mom/baby guide. Mother voiced understanding of the information.
[2022-09-15 18:20] VITALS: BP 108/76; PULSE 86; RESP 16; TEMP 37.2; O2SAT 98
--- NOTE | 2022-09-15 18:45 | PC.NURSE ---
Patient instructed about viewing the discharge video Mother & Baby Care, The First Two Weeks . Patient was given the opportunity and encouraged to ask questions. Patient verbalized understanding of information shared and has been given the mother/baby guide for home reference.
[2022-09-17 11:16] VITALS: BP 105/71; PULSE 95; RESP 18; TEMP 37.7; O2SAT 99
--- NOTE | 2022-09-29 10:43 | PM.OBDSVD ---
DS: Admitting Diagnosis Discharge Date 09/15/22 Admitting Diagnosis Active labor OB - DS: Summary Hospital Course Hospital Course: She was admitted for active labor. She had an uncomplicated vaginal delivery. She did well . Baby did well . She had asymptomatic anemia. She had oral iron supplementation. She requested discharge to home on day 1. OB Procedures : Ultrasound OB Procedures Intrapartum: Spontaneous Vag Delivery OB Procedures: : None Peripartum Data Delivery Method: Natural Vaginal Laceration Description: Perineal - 1st Degree complications: none Status at Discharge Functional status at discharge: independent ambulation Time Spent with Patient Time attestation: Total time spent providing and/or coordinating discharge services: Exam Const: General: cooperative Orientation/consciousness: oriented to person, oriented to place and oriented to time HENMT: Face/Nose/Sinus: Normal external nose present Eyes: General: appearance normal, both eyes and all related structures Resp: Effort & Inspection: normal respiratory effort GI: Inspection: normal to inspection Skin: General skin exam: normal color Neuro: General: oriented to person, oriented to place and oriented to time Extrem: General: normal to inspection and no calf tenderness Psych: Appearance: grossly normal Mental Status: mental status grossly normal Discharge Plan Discharge Attending physician on discharge: Everette Turner Consulting providers: Humberto Pandey; Patricia Miguel Discharging Clinician: Ramos Schwarz Anticipated Discharge Date/Time: 09/15/22 18:30 Patient Disposition: Home, Self-Care Activity: may shower, may drive after 2 weeks, as tolerated and pelvic rest Diet: breast feed on demand Discharge Instructions: Education: Mom and Baby Guide Given to: Mother Follow-Up: Call your delivering provider's office for an appointment to be seen in: 6 Weeks Mom and baby should come to the [facility] for the follow-up appointment. Appointment Date/Time: September 17, 2022 at 11:00 am What to expect at your follow-up visit: Blood Pressure Check Call [phone] if you are unable to keep your appointment time. BREAST CARE: * Wear a snug supportive bra. * For engorgement discomfort: Breast Feeding: * Apply warm moist washcloths * Express milk as needed to relieve engorgement * Wear loose clothing Bottle Feeding: * May apply ice packs * For sore nipples: * Identify correct latch-on * Apply warm moist washcloths before and after nursing * Air dry nipples after nursing * May apply Lansinoh cream to nipples EPISIOTOMY/PERINEAL CARE: * Until bleeding stops, use your shay bottle after urinating * Change your pad frequently throughout the day * You may take sitz baths several times a day (fill your bathtub with warm water and soak for 20 minutes.) Do NOT bathe in the water * No tub baths until seen by your physician - You may shower ACTIVITY: * Rest as much as possible. * Do not exercise or lift anything heavier than your baby (such as laundry or other children.) * Avoid stairs or driving as much as possible. * Do not put anything into the vagina. No douching, tampons, or sexual activity until seen by physician. NOTIFY PHYSICIAN IF YOU HAVE ANY QUESTIONS OR IF ANY OF THE FOLLOWING SYMPTOMS OCCUR: * If your episiotomy becomes red, swollen, or more painful than what you have experienced in the hospital. * If your vaginal bleeding becomes foul smelling. * If your vaginal bleeding becomes more heavy than a period or if your bleeding changes from pink to bright red. However, you may pass an occasional walnut-sized clot once or twice for the first week . * If you experience a sharp, shooting pain in you calves. * If you discover a marshall
== END 2022-09-15 19:15 | disposition home or self-care (01) | DRG 807 ==
LOC: ANHLDR 16:18 → ANHOB2 09-15 18:24 → ANHLDR 09-16 08:30 → ANHOB2 09-16 08:30
PROVIDERS: Admitting Provider Obstetrics & Gynecology; Visit Provider Student in an Organized Health Care Education/Training Program
DX: O70.0 First degree perineal laceration during delivery (principal); Z37.0 Single live birth; Z3A.39 39 weeks gestation of pregnancy
CPT/HCPCS: 36415; 85014; 85018; 85025; 86592; 86850; 86900; 86901; A9270; J2590; J2795; J7120

== ENCOUNTER 2025-01-27 19:53 | Emergency (ER) | payer OTHER, SELFPAY ==
--- NOTE | ~2025-01-27 | XR_ITS ---
Examination: XR chest 2V Clinical History: CHEST PAIN Comparison: None Technique: PA and Lateral Findings: Cardiomediastinal silhouette normal size and configuration. Lungs clear. No acute bony abnormality. IMPRESSION: 1. No acute cardiopulmonary findings. Reviewed, dictated and finalized at location R. OFFICER
--- NOTE | 2025-01-27 19:55 | ECG_ITS ---
Test Date: 2025-01-27 20:02:35 Measurements Intervals [place] Rate: 94 P: 72 WV: 152 QRS: 78 QRSD: 77 T: 23 QT: 355 QTc: 445 Interpretive Statements SINUS RHYTHM POSSIBLE LEFT ATRIAL ENLARGEMENT [-0.1mV P-WAVE IN V1/V2] NONSPECIFIC ST- T CHANGES No previous ECG available for comparison Electronically Signed On 01-28-2025 09:31:49 [employer] by Aryan Sandy M.D.
--- OUTSIDE RECORDS SUMMARY | 2025-01-27 19:55 | XMS_ITS | Clinical Summary ---
Author Organization [facility] Address [address] [place] [address] Phone Care Team Providers Care Sample Grinder Name Role Phone Provider, None Primary Care Provider Unavailabl e Allergies Active Allergy Reactions Criticality Noted Date Comments No Known Drug Allergy Other (see Comments) Medications No known medications Active Problems Problem Noted Date Diagnosed Date Chronic headaches 08/29/2013 Immunizations Immunization Administration Dates Next Due Hepatitis B Vaccine 12/12/1996,07/09/1996,1996 MMR Vaccine 04/23/1996,08/06/1992 PUR MMR SQ 10/09/2013 TB Skin Test 08/29/2013,05/07/1992 TDAP Vaccine 07/20/2005 Social History Tobacco Use Types Packs/Day Years Used Date Smoking Tobacco: Never Smokeless Tobacco: Never Tobacco Cessation:Counseling Given: Yes Alcohol Use Standard Drinks/Week Comments Not Asked 0 (1 standard drink = 0.6 oz pur e alcohol) Comments No Sex and Gender Information Value Date Recorded Sex Assigned at Not on file 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 Gender Identity Not on file Sexual Orientation Not on file Last Filed Vital Signs Vital Sign Reading Time Taken Comments Blood Pressure 107/74 09/17/2023 2:17 PM CDT Pulse 92 09/17/2023 2:17 PM CDT Temperature 36.6 C (97.8 F) 09/17/2023 2:17 PM CDT Respiratory Rate 16 09/17/2023 2:17 PM CDT Oxygen Saturation 100% 09/17/2023 2:17 PM CDT Inhaled Oxygen Concentration - - Weight 52.6 kg (116 lb) 09/17/2023 2:17 PM CDT Height 170.2 cm (5' 7) 09/17/2023 2:17 PM CDT Body Mass Index 18.17 09/17/2023 2:17 PM CDT Plan of Treatment Health Maintenance Due Date Last Done Comments Hepatitis C Virus (HCV) Screening 1991 Cervical Cancer Screening (CCS) 10/05/2013 Pap Smear 10/05/2013 10/05/2012, 10/05/2012 Human Papillomavirus (HPV) Immunization (1 - 3-dose SCDM series) 2018 HPV/Cotest 2021 Influenza Immunization (#1) 2024 SARS-COV-2 Immunization ( season) 2024 Td Immunization Every 10 Years (Adults With 1 Tdap) 06/29/2032 06/29/2022, 07/23/2020, 05/09/2018, Additional history exists Respiratory Syncytial Virus (RSV) Immunization (Adult) (1 - 1-dose 75+ series) 2066 Hepatitis B Immunization Completed 997, 07/09/1996, 06/08/1996 DTaP/Tdap/Td Immunization Discontinued 2022, 07/23/2020, 05/09/2018, Additional history exists Meningococcal Immunization (ACWY) Aged Out No longer eligible based on patient's age to complete this topic Pneumococcal Immunization Combined Aged Out No longer eligible based on patient's age to complete this topic Rotavirus Immunization Aged Out No lo nger eligible based on patient's age to complete this topic Procedures Procedure Name Priority Date/Time Associated Diagnosis Comments PATHOLOGY CYTOLOGY GEOTHERMAL PRODUCTION MANAGER Routine 10/05/2012 from Last 3 Months or Most Recently Relevant to Health Maintenance Results * PATHOLOGY CYTOLOGY GEOTHERMAL PRODUCTION MANAGER (10/05/2012) Specimen of unknown material (specimen) Elly Adame MD PATHOLOGY/CYTOLOGY ORDERABLES Final Result from Last 3 Months or Most Recently Relevant to Health Maintenance Insurance [facility] Care Teams Sample Grinder Relationship Specialty Start Date End Date Provider, None [place] PCP - General 09/17/23
--- OUTSIDE RECORDS SUMMARY | 2025-01-27 19:55 | XMS_ITS | Clinical Summary ---
Author Organization [facility] Address [address] [place] [id number] Care Team Providers Care Surgical Aides Teacher Name Role Phone Unavailable Primary Care Provider Unavailabl e Social History Tobacco Use Types Packs/Day Years Used Date Smoking Tobacco: Never Assessed Comments Unknown Sex and Gender Information Value Date Recorded Sex Assigned at Not on file Legal Sex Female 8:03 AM CDT Gender Identity Not on file Sexual Orientation Not on file Last Filed Vital Signs Vital Sign Reading Time Taken Comments Blood Pressure 110/70 12/14/2016 5:32 PM CDT Pulse 64 12/14/2016 5:32 PM CDT Temperature - - Respiratory Rate - - Oxygen Saturation - - Inhaled Oxygen Concentration - - Weight 54.7 kg (120 lb 8 oz) 12/14/2016 5:32 PM CDT Height 170.2 cm (5' 7) 12/14/2016 5:32 PM CDT Body Mass Index 18.87 12/14/2016 5:32 PM CDT Plan of Treatment Health Maintenance Due Date Last Done Comments Cervical Cancer Screening Pa p Smear (Age 30 to 64) Every 3 Years 1991 Annual Physical 1994 Hepatitis C 2009 DTaP, Tdap and Td Vaccines ( 1 - Tdap) 2010 Hepatitis B Vaccines (1 of 3 - 19+ 3-dose series) 2010 HPV Vaccines (1 - 3-dose SCD M series) 2018 Cervical Cancer Screening Pa p with HPV Testing (Age 30 to 64) Every 5 Years 2021 Cervical Cancer Screening with HPV 2021 COVID-19 Vaccine (2024-2 6 season) 2024 Influenza Adult (#1) 2024 Hepatitis A Vaccines Aged Out No long er eligible based on patient's age to complete this topic Meningococcal B Vaccine Aged Out No l onger eligible based on patient's age to complete this topic Meningococcal Vaccine Aged Out No shaylee juliana eligible based on patient's age to complete this topic Pneumococcal Vaccine: Pediat rics (0 to 5 Years) and At-Risk Patients (6 to 49 Years) Aged Out No longer eligible b ased on patient's age to complete this topic RSV Immunizations Under 20 Months Aged Out No longer eligible based on patient's age to complete this topic
--- OUTSIDE RECORDS SUMMARY | 2025-01-27 19:55 | XMS_ITS | Clinical Summary ---
Author Organization [address] Address [address] [place] [id number] Care Team Providers Care Corporate Communications Intern Name Role Phone Lore Millan MD Primary Care Provi murtaza Allergies No known active allergies Medications amoxicillin (AMOXIL) 500 mg tablet/capsuleIn dications:Upper Respiratory/HEEN T Infection Take 1 tablet/caps ule (500 mg total) by mouth 2 (two) times a day 20 tablet/capsul e 12/05/2018 Active Active Problems Problem Noted Date Diagnosed Date Inappropriate sinus tachycardia 02/16/2016 Palpitations 11/22/2015 Hay fever 07/15/2015 Migraine with aura 07/15/2015 Migraine with vertigo 07/15/2015 Intractable chronic migraine without aura 2015 Rash 01/16/2014 Surgical History Surgery Date Site/Laterality Comments SINUS SURGERY Sinus Surgery - nasal cauterizationa nd dermoplasty 2010 (Added by TW Conv) Family History Medical History Relation Name Comments Migraines Father Family history of migraine headaches - (Added by TW Conv) Heart attack Other Family history of heart attack - Relation: Grandparent (Added by TW Conv) Crohn's disease Paternal Grandfather Fami ly history of Crohn's disease - (Added by TW Conv) Dementia Paternal Grandfather Family history of dementia - (Added by TW Conv) Migraines Paternal Grandfather Family history of migraine headaches - (Added by TW Conv) Stroke Paternal Grandfather Family history of cerebrovascular accident (CVA) - (Added by TW Conv) Relation Name Status Comments Father Other Paternal Grandfather Social History Tobacco Use Types Packs/Day Years Used Date Smoking Tobacco: Never PHQ-2 Answer Date Recorded PHQ-2 Score 0 12/05/2018 Comments No Sex and Gender Information Value Date Recorded Sex Assigned at Not on file Legal Sex Female 8:39 AM [employer] Gender Identity Not on file Sexual Orientation Not on file Last Filed Vital Signs Vital Sign Reading Time Taken Comments Blood Pressure 122/78 12/05/2018 1:57 PM CDT Pulse 100 12/05/2018 1:57 PM CDT Temperature 36.6 C (97.8 F) 12/05/2018 1:57 PM CDT Respiratory Rate 16 12/05/2018 1:57 PM CDT Oxygen Saturation 98% 12/05/2018 1:57 PM CDT Inhaled Oxygen Concentration - - Weight 55.3 kg (122 lb) 12/05/2018 1:57 PM CDT Height 170.2 cm (5' 7) 12/05/2018 1:57 PM CDT Body Mass Index 19.11 12/05/2018 1:57 PM CDT Plan of Treatment Not on file Insurance CHOICE [place] Care Teams Corporate Communications Intern Relationship Specialty Start Date End Date Lore Millan MD [facility] [address] [place] [id number] PCP - General Family Medicine 12/05/18
[2025-01-27 19:59] VITALS: BP 142/99; PULSE 127; RESP 20; TEMP 36.7; O2SAT 100
[2025-01-27 20:19] LABS: Hematocrit 36.6 % (37.0-47.0); Hemoglobin 12.3 g/dL (12.0-15.0); Immature Granulocyte Percent A 0.2 % (0-0.5); Lymphocytes Absolute Auto 2.93 K/mm3 (0.9-3.2); Mean Corpuscular HGB Conc 33.6 g/dl (32-36); Mean Corpuscular Hemoglobin 28.3 pg (26-34); Mean Corpuscular Volume 84.3 fl (80-100); Nucleated Red Blood Cells Absolute Auto 0.000 K/mm3 (0.0-0.012); Nucleated Red Blood Cells Perc 0.0 % (0.0-0.2); Platelet Count Result 218 k/mm3 (150-375); Red Blood Count 4.34 M/mm3 (4.2-5.4); White Blood Count 8.8 K/mm3 (4.5-10.0)
[2025-01-27 20:30] LABS: INR 1.2; Partial Thromboplastin Time 28.0 Seconds (22.3-36.8); Prothrombin Time 14.8 Seconds (11.1-14.7)
[2025-01-27 20:34] LABS: Alanine Aminotransferase 14 U/L (6-35); Albumin Level 4.6 g/dL (3.5-5.1); Alkaline Phosphatase 55 U/L (38-126); Anion Gap 8 mmol/L (4-12); Aspartate Amino Transferase 25 U/L (14-36); Bilirubin,Total 0.5 mg/dL (0.2-1.3); Blood Urea Nitrogen 14 mg/dL (7-17); Calcium 9.4 mg/dL (8.4-10.2); Carbon Dioxide 28 mmol/L (22-30); Chloride 102 mmol/L (98-107); Estimated CRCL calculation 76 ml/min; Estimated Glomerular Filt Rate > 60; Glucose 107 mg/dL (65-110); Lipase 178 U/L (23-300); Potassium 4.2 mmol/L (3.4-5.0); Sodium 138 mmol/L (137-145); Total Protein 7.6 g/dL (6.3-8.2)
[2025-01-27 20:44] LABS: Troponin I < 0.012 ng/mL (0.000-0.034)
[2025-01-27 23:29] VITALS: PULSE 85
[2025-01-27 23:30] VITALS: O2SAT 100
--- NOTE | 2025-01-27 23:30 | ECG_ITS ---
Test Date: 2025-01-27 23:38:04 Measurements Intervals Hospers Rate: 75 P: 34 MO: 160 QRS: 71 QRSD: 86 T: 46 QT: 393 QTc: 440 Interpretive Statements SINUS RHYTHM No previous ECG available for comparison Electronically Signed On 01-28-2025 06:41:43 [employer] by Deidra Sotomayor M.D.
[2025-01-27 23:32] VITALS: BP 118/80; PULSE 76; RESP 11; O2SAT 100
[2025-01-28 00:01] LABS: Troponin I < 0.012 ng/mL (0.000-0.034)
[2025-01-28 00:16] LABS: Thyroid Stimulating Hormone Reflex 2.530 uIU/mL (0.465-4.68)
--- NOTE | 2025-01-28 00:46 | ED_ITS ---
HPI - Chest Pain General Chief Complaint: Chest Pain Stated Complaint: CHEST PAIN, SOB TODAY Time Seen by Provider: 01/27/25 23:16 History of Present Illness HPI narrative: Patient is a 34-year-old female who presents to the ER with chest tightness and occasional shortness of breath. She reports her pain started earlier today. Patient reports she had increased dizziness when lying flat so she decided to come in for further evaluation. Patient reports she noticed her symptoms increase with exertion at first but then they continued without any significant contributing factors. She denies any recent fevers, congestion, wheezing, cough, abdominal pain or back pain. Patient reports the pain is manageable. She endorses a history of sick sinus syndrome that was self- resolving 10 years ago. Patient denies any other medical history relevant to this ER visit. She reports her symptoms are similar to previous gastric reflux symptoms she has experienced. Related Data Home Medications ?Medication ?Instructions ?Recorded ?Confirmed ?Last Taken ?Type prenat.vits,juan ramon,[id number] 1 tablet PO DAILY 12/3102/15/24 1 Day Ago History ~08/17/22 levonorgestrel (Mirena) 1 device intrauterine ONCE 1 04/16/23 02/15/24 Unknown History Allergies Allergy/AdvReac Type Severity Reaction Status Date / Time No Known Allergies Allergy Verified 01/27/25 19:54 Review of Systems 2 Review of Systems: All systems reviewed & are unremarkable except as noted in HPI and below PMFSH Past Medical History Medical History Pain of left clavicle Vaginal delivery x2 Surgical History Surgical History [place] teeth removed Family History Family History Father Family history of hypercholesterolemia Grandparent Family history of lung cancer Social History Social History Smoking status: Never smoker Second hand tobacco smoke exposure: No Alcohol intake: never Substance use: never Lack of Transportation: No Lack of Food: Never True Current Housing: I Have Housing Concerned About Future Housing: No Difficulty Paying Gas/Electric Bills: No Difficulty Paying for Meds: No Currently Unemployed: No Education: Master's Degree or Higher Difficulty w/ Childcare or Family Care: No Living arrangements: with family Occupation/Education: occupation Gender identity (if verbalized by the patient): Female Sexual Orientation (if Verbalized by the Patient): Straight or Heterosexual Spiritual care concerns: No Exam 2 Narrative: GENERAL: Well appearing, well-nourished, non-toxic, in no acute distress. HEAD: Normocephalic, atraumatic. NECK: Supple. No adenopathy, no masses. RESPIRATORY: Airway patent, respirations nonlabored. Clear to auscultation bilaterally, no rales, rhonchi, wheezing. CARDIOVASCULAR: Regular rate and rhythm without murmurs, rubs, or gallops. Peripheral pulses 2+ and equal bilaterally. ABDOMINAL: Soft, nontender, nondistended, no hepatosplenomegaly. Normoactive BS. MUSCULOSKELETAL: Moves all extremities. Strength/ROM intact without gross deformities. SKIN: Warm, dry, normal color. No rashes. NEURO: A&O X3. Speech clear. Cranial nerves II-XII intact. No ataxic movements. PSYCHIATRIC: Appropriate mood and affect. Normal interaction. Course Vital Signs Vital signs: Vital Signs Temperature 36.7 C 01/27/25 19:59 Pulse Rate 127 H 01/27/25 19:59 Respiratory Rate 20 01/27/25 19:59 Blood Pressure 142/99 H 01/27/25 19:59 Pulse Oximetry 100 01/27/25 19:59 Oxygen Delivery Room Air 01/27/25 19:59 Temperature 36.7 C 01/27/25 19:59 Pulse Rate 76 01/27/25 23:32 Respiratory Rate 11 L 01/27/25 23:32 Blood Pressure 118/80 01/27/25 23:32 Pulse Oximetry 100 01/27/25 23:32 Oxygen Delivery Room Air 01/27/25 23:30 MDM - Chest Pain MDM Narrative Medical decision making narrative: Patient is a 34-year-old female who presents to the ER with chest tightness and occasional shortness of breath. She reports her pain started earlier today. Patient reports she had increased dizziness when lying flat so she decided to come in for further evaluation. Patient reports she noticed her symptoms increase with exertion at first but then they continued without any significant contributing factors. She denies any recent fevers, congestion, wheezing, cough, abdominal pain or back pain. Patient reports the pain is manageable. She endorses a history of sick sinus syndrome that was self- resolving 10 years ago. Patient denies any other medical history relevant to this ER visit. She reports her symptoms are similar to previous gastric reflux symptoms she has experienced. Labs Ordered: CBC, CMP, troponin, lipase, PTT, INR, TSH, D-dimer Imaging Ordered: Chest x-ray Medications Ordered: None necessary, patient declined further medication Results: Patient's blood work and chest x-ray indicated no acute abnormalities. Diagnosis: Atypical chest pain Risks: HEART score: low risk HEART Score for Major Cardiac Events from [email or web address] on 01/28/2025 All calculations should be rechecked by clinician prior to use RESULT SUMMARY: 1 points Low Score (0-3 points) Risk of MACE of 0.9-1.7%. INPUTS: History ?> 1 = Moderately suspicious EKG ?> 0 = Normal Age ?> 0 = <45 Risk factors ?> 0 = No known risk factors Initial troponin ?> 0 = <Normal limit Consults: cardiology (outpatient) Patient Education/Shared MDM: Results of lab work and imaging shared with patient. She reports her symptoms very manageable and does not want any medication at this time. Patient reports she is comfortable with being discharged home. She was advised to establish care with a primary care provider and follow-up with Cardiology. She will not be discharged home with any new prescriptions. Strict return precautions provided. Patient verbalized understanding and is in agreement with plan. Vital signs stable at time of discharge. All questions answered. Differential Diagnosis Differential diagnosis: Likely atypical chest pain, st elevation myocardial infarction and costochondritis Lab Data Attestation: I reviewed the patient's lab results. 01/27/25 20:10 01/27/25 20:10 Labs: Lab Results 01/27/25 01/27/25 Range/Units 20:10 23:28 WBC 8.8 (4.5-10.0) K/mm3 RBC 4.34 (4.2-5.4) M/mm3 Hgb 12.3 D (12.0-15.0) g/dL Hct 36.6 L (37.0-47.0) % MCV 84.3 (80-100) fl MCH 28.3 (26-34) pg MCHC 33.6 (32-36) g/dl RDW 12.8 (11.5-14.5) % Plt Count 218 (150-375) k/mm3 MPV 10.1 (7.4-10.4) fl Immature Gran % (Auto) 0.2 (0-0.5) % Neut % (Auto) 55.6 (45.5-73.1) % Lymph % (Auto) 33.5 (18.3-44.2) % [place] % (Auto) 7.2 (2.6-8.5) % Eos % (Auto) 2.9 (0-4.4) % Baso % (Auto) 0.6 (0.2-1.2) % Lymph # (Auto) 2.93 (0.9-3.2) K/mm3 [place] # (Auto) 0.6 (0.1-0.6) K/mm3 Eos # (Auto) 0.3 (0-0.3) K/mm3 Baso # (Auto) 0.1 (0.0-0.1) K/mm3 Abs Immat Gran (auto) 0.02 (0.00-0.031) K/mm3 Absolute Neuts (auto) 4.9 (1.3-6.7) K/mm3 Absolute Nucleated RBC 0.000 (0.0-0.012) K/mm3 Nucleated RBC % 0.0 (0.0-0.2) % PT 14.8 H (11.1-14.7) Seconds INR 1.2 APTT 28.0 (22.3-36.8) Seconds D-Dimer < 0.27 (<0.48) ug/mL Sodium 138 (137-145) mmol/L Potassium 4.2 (3.4-5.0) mmol/L Chloride 102 (98-107) mmol/L Carbon Dioxide 28 (22-30) mmol/L Anion Gap 8 (4-12) mmol/L BUN 14 (7-17) mg/dL Creatinine 0.80 (0.7-1.0) mg/dL Estim Creat Clear Calc 76 ml/min Estimated GFR > 60 (59 - ) Glucose 107 (65-110) mg/dL Calcium 9.4 (8.4-10.2) mg/dL Total Bilirubin 0.5 (0.2-1.3) mg/dL AST 25 (14-36) U/L ALT 14 (6-35) U/L Alkaline Phosphatase 55 (38-126) U/L Troponin I < 0.012 < 0.012 (0.000-0.034) ng/mL Total Protein 7.6 (6.3-8.2) g/dL Albumin 4.6 (3.5-5.1) g/dL Lipase 178 (23-300) U/L TSH (Reflex) 2.530 (0.465-4.68) uIU/mL Discharge Plan Discharge Clinical Impression: Atypical chest pain Patient Disposition: Home Condition: Stable Instructions: Antibiotic Form, Noncardiac Chest Pain (ED) Additional Instructions: Please return to the ER with any worsening symptoms. Establish care with a primary care provider as soon as possible and follow up with Cardiology. You may take Tylenol and/or ibuprofen for pain control. Please remember to drink lots of water. Patient Language: Danish Prescriptions: No Action Mirena 21 mcg/24hr (up to 8 yrs) 52 mg intrauterine device 1 device intrauterine ONCE Rx Instructions: as a single dose prenat.vits,juan ramon,[id number] Tablet 1 tablet PO DAILY Follow-up/Referrals: Alexis Leach MD [Physician, Cardiology] PHYSICIAN,B2B SALES CONSULTANT [Primary Care Provider, Internal Medicine] Emmie Cooley DO [Physician, Family Practice] Referral Note: Primary care provider Time of Disposition: 00:55
[2025-01-28 01:05] VITALS: BP 118/70; PULSE 78; RESP 18; O2SAT 100
== END 2025-01-28 01:03 | disposition home or self-care (01) ==
PROVIDERS: Student in an Organized Health Care Education/Training Program; Emergency Provider Registered Nurse
DX: R07.89 Other chest pain (principal); R94.31 Abnormal electrocardiogram [ECG] [EKG]
CPT/HCPCS: 36415; 71046; 80053; 83690; 84443; 84484; 85025; 85380; 85610; 85730; 93005; 99284